=== PATIENT | male | born 1975 | race Caucasian/White ===

== ENCOUNTER 2018-11-20 05:02 | Emergency (ER) | payer BC ==
[~2018-11-20] VITALS: Ht 188 cm; Wt 134.4 kg
[2018-11-20 05:03] VITALS: BP 169/101
[2018-11-20] MEDS ORDERED: FLUORESCEIN OPHTHALMIC 1 MG STRIP ONE (05:39)
[2018-11-20] MEDS ORDERED: PROPARACAINE OPHTH 0.5%, 15ML ONE (05:39)
[2018-11-20] MEDS ORDERED: FLUORESCEIN OPHTHALMIC 1 MG STRIP EACHEYE ONE (06:00)
== END 2018-11-20 06:20 | disposition home or self-care (01) ==
LOC: ED 06:18
DX: S05.01XA Injury of conjunctiva and corneal abrasion without foreign body, right eye, initial encounter (principal); X58.XXXA Exposure to other specified factors, initial encounter; Y93.89 Activity, other specified; Y92.89 Other specified places as the place of occurrence of the external cause; Y99.8 Other external cause status
CPT/HCPCS: 99283